=== PATIENT | female | born 1980 | race Caucasian/White ===

== ENCOUNTER 2021-09-02 23:51 | Emergency (ER) | payer OTHER ==
[~2021-09-02] VITALS: Ht 154.9 cm; Wt 115.0 kg
[2021-09-03] MEDS ORDERED: PERTUSS(ACELL),DIPH,TET VAC/PF 0.5 ML SYRINGE IM. ONE (00:15)
[2021-09-03] MEDS ORDERED: BACITRACIN 0.9 GM PACKET OINTMENT TP ONE (00:15)
[2021-09-03] MEDS ORDERED: ACETAMINOPHEN 500 MG TABLET PO ONE (00:15)
[2021-09-03] MEDS ORDERED: LIDOCAINE 1% 10 ML VIAL SQ ONE (00:15)
[2021-09-03] MEDS ORDERED: CEPHALEXIN MONOHYDRATE 500 MG CAPSULE PO ONE ×2 (01:45→02:15)
[2021-09-03 02:23] VITALS: BP 134/84
== END 2021-09-03 03:23 | disposition home or self-care (01) ==
LOC: EMS 23:55
DX: S81.812A Laceration without foreign body, left lower leg, initial encounter (principal); W19.XXXA Unspecified fall, initial encounter; Y93.89 Activity, other specified; Y92.89 Other specified places as the place of occurrence of the external cause; Y99.8 Other external cause status
CPT/HCPCS: 12005; 90471; 90715; 99283; J3490; 12035; 99284